=== PATIENT | female | born 1955 | race Caucasian/White ===

== ENCOUNTER 2020-04-01 18:45 | Emergency (ER) | payer SELFPAY ==
[~2020-04-01] VITALS: Ht 160 cm; Wt 68.5 kg
[~2020-04-01 18:45] MED LIST: ASPIRIN325 MG PO; ATIVAN2 MG PO; HYDROCHLOROTHIA25 MG PO; NORCO 10MG-325MG1 EA PO
--- OUTSIDE RECORDS SUMMARY | 2020-04-01 18:48 | XMS REPORT | Clinical Summary ---
Author Author [facility]affi [facility] Organization [facility] Address Unknown Phone Unavailable Care Team Providers Care Legal Director Name Role Phone Asked, No Pcp PCP Unavailable Allergies No Known Allergies Medications End Date Status Medication Sig Dispensed Refills Start Date Active enalapril (VASOTEC) 20 MG Take 20 mg by 0 tablet mouth daily. Active LORAZepam (ATIVAN) 2 MG Take 2 mg by 0 tablet mouth every 8 (eight) hours as needed for anxiety. Active aspirin 325 MG tablet Take 325 mg 0 by mouth daily. Active PARoxetine (PAXIL) 40 MG Take 40 mg by 0 tablet mouth every morning. Active Problems Not on file Social History Date Tobacco Use Types Packs/Day Years Used Current Every Day Smoker 1 Smokeless Tobacco: Never Used Drinks/Week oz/Week Comments Alcohol Use No Alcohol Habits Answer Date Recorded How often do you have a drink containing alcohol? Never 11/10/2018 How many drinks containing alcohol do you have on No t asked a typical day when you are drinking? How often do you have six or more drinks on one Not asked occasion? Sex Assigned at Date Recorded Not on file Industry Job Start Date Occupation Not on file Not on file Not on file Travel End Travel History Travel Start No recent travel history available. 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
--- NOTE | 2020-04-01 19:26 | Emergency Department Note ---
History of Present Illnes History of Present Illness Chief Complaint: Head/Face Trauma History of Present Illness This is a 64 year old female presents to the ED for head injury 3 days prior after tree impacted his head. (-) LOC. Since incident, patient with nausea and blurriness of vision. . Arrival Mode: Car Onset (how long ago): day(s) (3) Location: frontal head Radiation: Reports non-radiation Severity: moderate Duration (how long): day(s) Timing of current episode: constant Progression: worsening Chronicity: new Context: Reports trauma/injury Relieving factors: rest Exacerbating factors: movement Associated symptoms: Reports headaches, Reports nausea/vomiting Treatments prior to arrival: none Past Medical/Family History Physician Review I have reviewed the patient's past medical and family history. Any updates have been documented here. Past Medical History Recent Fever: No Clinical Suspicion of Infectio: No New/Unexplained Change in Ment: No Past Medical History: Hypertension, COPD Other Medical History: Depression/anxiety Cholesterol Herniated discs ARF-no dialysis DVTs Endometriosis Other Surgery: Right foot sx R CEA Attempted L CEA w/out success Social History Smoking Cessation: Current some day smoker Counseling Performed: Yes Alcohol Use: None Any Illegal Drug Use: No Other Last Tetanus: OOD Review of Systems Review of Systems Constitutional: Reports no symptoms EENTM: Reports blurred vision Cardiovascular: Reports no symptoms Respiratory: Reports no symptoms Gastrointestinal: Reports nausea Genitourinary: Reports no symptoms Musculoskeletal: Reports no symptoms Integumentary: Reports no symptoms Neurological: Reports headache Psychological: Reports no symptoms Endocrine: Reports no symptoms Hematological/Lymphatic: Reports no symptoms Review of other systems All other systems reviewed and negative. Physical Exam Related Data Allergies: Coded Allergies: No Known Allergies (Unverified , 01/25/17) Triage Vital Signs Vital Signs Date Time Temp Pulse Resp B/P (MAP) Pulse Ox O2 Delivery O2 Flow Rate FiO2 04/01/20 19:26 99.7 88 20 119/75 98 Vital signs reviewed: Yes Physical Exam CONSTITUTIONAL Constitutional: Reports well-developed, Reports well-nourished HENT HENT: Reports normocephalic, Reports atraumatic, Reports oropharynx clear/moist, Reports nose normal HENT L/R: Reports left ext ear normal, Reports right ext ear normal EYES Eyes: Reports PERRL, Reports conjunctivae normal NECK Neck: Reports ROM normal PULMONARY Pulmonary: Reports effort normal, Reports breath sounds normal CARDIOVASCULAR Cardiovascular: Reports regular rhythm, Reports heart sounds normal, Reports capillary refill normal, Reports normal rate GASTROINTESTINAL Abdominal: Reports soft, Reports nontender, Reports bowel sounds normal GENITOURINARY Genitourinary: Reports exam deferred SKIN Skin: Reports warm, Reports dry MUSCULOSKELETAL Musculoskeletal: Reports ROM normal NEUROLOGICAL Neurological: Reports alert, Reports oriented x 3, Reports no gross motor or sensory deficits PSYCHOLOGICAL Psychological: Reports mood/affect normal, Reports judgement normal Results Imaging Imaging results reviewed: Yes Impressions [place] [address] Patient Name: VALENTINA ESTRADA MR #: [id number] : 1955 Age/Sex: 64/F Req #: [id number] Adm Physician: Ordered by: MIKE RICHEY DO Report #: [id number] Location: ER Room/Bed: Procedure: [id number] CT/CT CERVICAL SPINE WO Exam Date: 04/01/20 Exam Time: 1949 REPORT STATUS: Signed Examination: CT CERVICAL SPINE WO CONTRAST HISTORY:Neck pain and injury after fall. COMPARISON:None. TECHNIQUE: Multidetector helical axial images were obtained without contrast from the foramen magnum to T1. Coronal and sagittal reformatted images were done. Bone and soft tissue windows were evaluated. Dose modulation, iterative reconstruction, and/or weight based adjustment of the mA/kV was utilized to reduce the radiation dose to as low as reasonably achievable. FINDINGS: Alignment:Normal alignment with straightening of normal lordosis. Vertebrae: Normal height and density. No acute fracture, infection or neoplasm. Disc space heights: Normal height. Caliber of spinal canal: Developmentally normal. Posterior fossa and craniocervical junction: Foramen magnum patent. No Chiari 1 malformation. Soft tissues: No abnormality. Degenerative changes: Bilateral facet arthropathy from C3-C5. Grade I anterolisthesis on C4 on C5. No disc bulge/ herniation or canal stenosis. Visualized lung apices: No abnormalities. IMPRESSION: No acute abnormalities. Bilateral facet arthropathy from C3-C5. Grade I anterolisthesis on C4 on C5. Signed by: Dr. Carol Hines M.D. on 04/01/2020 8:51 PM Dictated By: CAROL STANFORD MD 50 Transcribed By: ALEKSEY on 04/01/202050 COPY TO: MIKE RICHEY DO~ [place] [address] Patient Name: VALENTINA ESTRADA MR #: [id number] : 1955 Age/Sex: 64/F Req #: [id number] Adm Physician: Ordered by: MIKE RICHEY DO Report #: [id number] Location: ER Room/Bed: Procedure: [id number] CT/CT BRAIN WO Exam Date: 04/01/20 Exam Time: 1949 REPORT STATUS: Signed Examination: CT head without contrast Clinical Indication: Forehead injury. Technique: Transaxial noncontrast images from the skull base through the vertex were obtained. Sagittal and coronal reformatted images were done. Dose modulation, iterative reconstruction, and/or weight based adjustment of the mA/kV was utilized to reduce the radiation dose to as low as reasonably achievable. Comparison: None. Findings: Scalp: No abnormalities. Bones: Intact. No fractures. No blastic or lytic lesions. Brain sulci: Appropriate for patient's age. Ventricles: Normal in size and configuration. No hydrocephalus. Extra-axial space: No acute abnormalities. Bifrontal subdural hygromas with maximal thickness of 8mm on each side. Parenchyma: No abnormal densities. No masses, hemorrhage, or acute or chronic cortical based vascular insults. Suprasellar region: No abnormalities. Craniocervical junction: The foramen magnum is patent. No Chiari one malformation. Impression: No acute intracranial abnormality. Signed by: Dr. Carol Hines M.D. on 04/01/2020 8:42 PM Dictated By: CAROL STANFORD MD 41 Transcribed By: ALEKSEY on 04/01/202041 COPY TO: MIKE RICHEY DO~ Assessment & Plan Medical Decision Making MDM 64 yof presents with remote h/o of head injury. reports dizziness and nausea since incident . CTS ordered and reviewed to r/o brain injury, and skull fx. Patient to be discharged to f/u with PCP Reassessment Reassessment Prior to discharge patient requests additional studies to work up her month long history of LE pain/tingling. Further more had earlier requested to be tested for antibodies for COVID-19 infection. I explained to the patient that her expectations for a full ED evaluation of her chronic issues was not realistic and that she would be better suited to f/u with her PCP. Patient refused to contact her PCP and patient was instructed that it would be in her best interest to pursue a relationship with her PCP. Assessment & Plan Final Impression: (1) Head injury (2) Anxiety Last Vital Signs Date Time Temp Pulse Resp B/P (MAP) Pulse Ox O2 Delivery O2 Flow Rate FiO2 04/01/20 21:26 84 18 100 04/01/20 21:15 98.5 148/79 Home Meds Reported Medications Aspirin (ASPIRIN) 325 Mg Tablet, 325 MG PO DAILY, TAB 02/12/16 Hydrochlorothiazide (HYDROCHLOROTHIAZIDE) 25 Mg Tablet, 25 MG PO DAILY, #30 TAB 02/12/16 Acetaminophen/Hydrocodone* (NORCO 10MG-325MG*) 1 Ea Tab, 1 TAB PO Q6H PRN for PAIN, TAB 02/12/16 Lorazepam (ATIVAN) 2 Mg Tablet, 2 MG PO TID 02/12/16 MIKE RICHEY DO Apr 01, 2020 19:26
--- NOTE | 2020-04-01 20:46 | Diagnostic Imaging Report ---
Examination: CT head without contrast Clinical Indication: Forehead injury. Technique: Transaxial noncontrast images from the skull base through the vertex were obtained. Sagittal and coronal reformatted images were done. Dose modulation, iterative reconstruction, and/or weight based adjustment of the mA/kV was utilized to reduce the radiation dose to as low as reasonably achievable. Comparison: None. Findings: Scalp: No abnormalities. Bones: Intact. No fractures. No blastic or lytic lesions. Brain sulci: Appropriate for patient's age. Ventricles: Normal in size and configuration. No hydrocephalus. Extra-axial space: No acute abnormalities. Bifrontal subdural hygromas with maximal thickness of 8mm on each side. Parenchyma: No abnormal densities. No masses, hemorrhage, or acute or chronic cortical based vascular insults. Suprasellar region: No abnormalities. Craniocervical junction: The foramen magnum is patent. No Chiari one malformation. Impression: No acute intracranial abnormality. Signed by: Dr. Carol Hines M.D. on 04/01/2020 8:42 PM
--- NOTE | 2020-04-01 20:54 | Diagnostic Imaging Report ---
Examination: CT CERVICAL SPINE WO CONTRAST HISTORY:Neck pain and injury after fall. COMPARISON:None. TECHNIQUE: Multidetector helical axial images were obtained without contrast from the foramen magnum to T1. Coronal and sagittal reformatted images were done. Bone and soft tissue windows were evaluated. Dose modulation, iterative reconstruction, and/or weight based adjustment of the mA/kV was utilized to reduce the radiation dose to as low as reasonably achievable. FINDINGS: Alignment:Normal alignment with straightening of normal lordosis. Vertebrae: Normal height and density. No acute fracture, infection or neoplasm. Disc space heights: Normal height. Caliber of spinal canal: Developmentally normal. Posterior fossa and craniocervical junction: Foramen magnum patent. No Chiari 1 malformation. Soft tissues: No abnormality. Degenerative changes: Bilateral facet arthropathy from C3-C5. Grade I anterolisthesis on C4 on C5. No disc bulge/ herniation or canal stenosis. Visualized lung apices: No abnormalities. IMPRESSION: No acute abnormalities. Bilateral facet arthropathy from C3-C5. Grade I anterolisthesis on C4 on C5. Signed by: Dr. Carol Hines M.D. on 04/01/2020 8:51 PM
[2020-04-01 21:26] VITALS: BP 148/79
== END 2020-04-01 21:40 | disposition home or self-care (01) ==
LOC: ER 18:45
DX: S00.83XA Contusion of other part of head, initial encounter (principal); M54.2 Cervicalgia; Y93.H2 Activity, gardening and landscaping; Y92.007 Garden or yard of unspecified non-institutional (private) residence as the place of occurrence of the external cause; I10 Essential (primary) hypertension; E78.5 Hyperlipidemia, unspecified; F41.9 Anxiety disorder, unspecified; Z86.718 Personal history of other venous thrombosis and embolism; Z86.73 Personal history of transient ischemic attack (TIA), and cerebral infarction without residual deficits; F17.210 Nicotine dependence, cigarettes, uncomplicated
CPT/HCPCS: 70450; 72125; 99283